=== PATIENT | male | born 1960 | race African-American/Black ===

== ENCOUNTER 2018-07-14 11:31 | Day surgery (SDC) | payer OTHER ==
[~2018-07-14 11:31] MED LIST: SOD CHLORIDE 0.9% 1,000 ML IV
[2018-07-14] MEDS ORDERED: LIDOCAINE 2% (SDV) 5 ML INJ (11:42)
[2018-07-14] MEDS ORDERED: PROPOFOL 20 ML (11:42)
[2018-07-14] MEDS ORDERED: MIDAZOLAM 1 MG/ML 2 ML INJ (11:42)
[2018-07-14] MEDS ORDERED: NEOSTIGMINE 3 MG/3 ML SYRINGE (11:42)
[2018-07-14] MEDS ORDERED: ROCURONIUM 50 MG INJ (11:42)
[2018-07-14] MEDS ORDERED: FENTAnyl 50 MCG/ML VIAL (11:42)
[2018-07-14] MEDS ORDERED: GLYCOPYRROLATE 0.4 MG INJ (11:42)
[2018-07-14] MEDS ORDERED: DEXAMETHASONE 4 MG/ML 1 ML INJ (11:43)
[2018-07-14] MEDS ORDERED: ONDANSETRON 4 MG INJ (11:43)
[2018-07-14] MEDS ORDERED: HYDROmorphONE 1 MG/5 ML IV SYRINGE IV ×2 (12:00)
[2018-07-14] MEDS ORDERED: OXYCODONE/ACETAMINOPHEN (5/325) TAB PO (12:00)
[2018-07-14] MEDS ORDERED: MIDAZOLAM 1 MG/ML 2 ML INJ IV (12:00)
[2018-07-14] MEDS ORDERED: morphine (1 MG/ML) 10ML SYRINGE IV ×3 (12:00)
[2018-07-14] MEDS ORDERED: LABETALOL HCL 20MG INJ IV (12:00)
[2018-07-14] MEDS ORDERED: FENTAnyl 50 MCG/ML VIAL IV ×2 (12:00)
[2018-07-14] MEDS ORDERED: MEPERIDINE 25 MG INJ IV (12:00)
[2018-07-14] MEDS ORDERED: EPHEDrine SULFATE 50 MG/5 ML SYG IV (12:00)
[2018-07-14] MEDS ORDERED: ATROPINE 1 MG/10 ML SYRINGE IV (12:00)
[2018-07-14] MEDS ORDERED: DIPHENHYDRAMINE 50 MG INJ IV (12:00)
[2018-07-14] MEDS ORDERED: ONDANSETRON 4 MG INJ IV (12:00)
[2018-07-14] MEDS ORDERED: hydrALAzine 20 MG INJ IV (12:00)
[2018-07-14 12:25] LABS: ADD MAN DIFF? NO
[2018-07-14 12:30] LABS: BASOPHILS % 0.2 % (0.0-2.0); EOSINOPHILS # 0.1 10^3/ul (0.0-0.5); EOSINOPHILS % 2.2 % (0.0-7.0); HEMATOCRIT 42.5 % (42.0-52.0); HEMOGLOBIN 14.6 g/dl (14.0-18.0); LYMPHOCYTES # 1.7 10^3/ul (0.8-2.9); MEAN CORPUSCULAR HGB CONC 34.4 g/dl (32.0-37.0); MEAN CORPUSCULAR VOLUME 90.2 fl (82.0-101.0); MONOCYTE # 0.5 10^3/ul (0.3-0.9); MONOCYTES % 12.5 % (0.0-11.0); NEUTROPHIL # 1.8 10^3/ul (1.6-7.5); NEUTROPHILS % 43.9 % (39.0-77.0); PLATELET COUNT 235 10^3/UL (140-415); RED BLOOD COUNT 4.71 10^6/ul (4.70-6.10); RED CELL DISTRIBUTION WIDTH 13.1 % (11.5-14.5)
[2018-07-14 12:30] LABS: WHITE BLOOD COUNT 4.2 10^3/ul (4.8-10.8)
[2018-07-14 12:35] LABS: HOLD TRANSMISSIONS 1
[2018-07-14 13:07] LABS: INR 0.99; PROTIME 13.2 Sec (11.9-14.9)
[2018-07-14 13:08] LABS: PARTIAL THROMBOPLASTIN TIME 28.5 Sec (23.0-35.0)
[2018-07-14] MEDS ORDERED: SUCCINYLCHOLINE CHLORIDE 100 MG/5 ML SYG IV (13:11)
[2018-07-14 13:31] LABS: ANION GAP 8 (5-13); Estimated GFR > 60 mL/min (>60)
[2018-07-14 13:32] LABS: ALANINE AMINOTRANSFERASE 27 IU/L (13-69); ALBUMIN/GLOBULIN RATIO 0.88; ALKALINE PHOSPHATASE 76 IU/L (42-121); ASPARTATE AMINO TRANSFERASE 33 IU/L (15-46); BILIRUBIN,INDIRECT 0.6 mg/dl (0-1.1); BILIRUBIN,TOTAL 0.6 mg/dl (0.2-1.3); BLOOD UREA NITROGEN 12 mg/dl (7-20); CALCIUM 9.9 mg/dl (8.4-10.2); CARBON DIOXIDE 25 mmol/L (21-31); CHLORIDE 107 mmol/L (97-110); CREATININE 0.82 mg/dl (0.61-1.24); GLUCOSE 86 mg/dl (70-220); POTASSIUM 4.3 mmol/L (3.5-5.1); SODIUM 140 mmol/L (135-144); TOTAL PROTEIN 8.5 g/dl (6.1-8.1)
[2018-07-14] MEDS ORDERED: ATROPINE 1 MG/10 ML SYRINGE (14:04)
[2018-07-14] MEDS: BUPIVACAINE 0.5% (SDV) 30 ML INJ (14:05)
[2018-07-14] MEDS ORDERED: FLUMAZENIL 0.5 MG INJ (14:15)
[2018-07-14] MEDS: CEFAZOLIN 1 GM/50 ML (PMX) 50 ML IVPB (14:31)
[2018-07-14] MEDS: HYDROmorphONE 1 MG/5 ML IV SYRINGE IV (14:40)
[2018-07-14] MEDS: OXYCODONE/ACETAMINOPHEN (5/325) TAB PO (15:48)
== END 2018-07-14 16:02 | disposition home or self-care (01) ==
LOC: SDS 11:31
DX: K42.9 Umbilical hernia without obstruction or gangrene (principal); R94.31 Abnormal electrocardiogram [ECG] [EKG]
CPT/HCPCS: 49585; 71045; 80053; 85025; 85610; 85730; 93005